=== PATIENT | female | born 1985 ===

== ENCOUNTER 2017-11-09 04:18 | Emergency (ER) | payer SELFPAY ==
--- NOTE | 2017-11-09 04:54 | C.PDOC ---
History Of Present Illness 32 year old female presents to the ED c/o intermittent left sided chest pressure for the past 3 weeks. Patient reports symptoms usually occur while sleeping at 03:00. Patient states chest discomfort associated with palpitations , lightheadedness, cramps in right hand and sweats to hands and feet. Patient denies fever, chills, visual changes, nausea, vomit, diarrhea, weakness, numbness. Time Seen by Provider: 11/09/17 04:44 Chief Complaint (Nursing): Chest Pain History Per: Patient History/Exam Limitations: no limitations Onset/Duration Of Symptoms: Intermittent Episodes (3 weeks) Current Symptoms Are (Timing): Still Present Quality: Pressure Recent travel outside of the [place]: No Additional History Per: Patient Past Medical History Reviewed: Historical Data, Nursing Documentation, Vital Signs Vital Signs: Last Vital Signs Temp 98.7 F 11/09/17 04:38 Pulse 71 11/09/17 04:40 Resp 20 11/09/17 04:38 BP 116/74 11/09/17 04:38 Pulse Ox 100 11/09/17 04:38 - Medical History PMH: No Chronic Diseases Surgical History: No Surg Hx Family History: States: Unknown Family Hx - Social History Hx Alcohol Use: Yes Hx Substance Use: No Review Of Systems Constitutional: Negative for: Fever, Chills Eyes: Negative for: Vision Change Cardiovascular: Positive for: Chest Pain, Palpitations Respiratory: Negative for: Cough, Shortness of Breath Gastrointestinal: Negative for: Nausea, Vomiting, Abdominal Pain Skin: Negative for: Rash Neurological: Negative for: Weakness, Numbness, Headache, Dizziness Physical Exam - Physical Exam Appears: Non-toxic, Other (anxious) Skin: Normal Color, Warm, Dry Head: Atraumatic, Normacephalic Eye(s): bilateral: Normal Inspection Oral Mucosa: Moist Neck: Normal ROM, Supple Chest: Symmetrical Cardiovascular: Rhythm Regular Respiratory: Normal Breath Sounds, No Rales, No Rhonchi, No Wheezing Gastrointestinal/Abdominal: Soft, No Tenderness, No Guarding, No Rebound Extremity: Normal ROM, No Tenderness, No Swelling Neurological/Psych: Oriented x3, Normal Speech Gait: Steady ED Course And Treatment - Laboratory Results Result Diagrams: 11/09/17 05:00 11/09/17 05:00 ECG: Interpreted By Me, Viewed By Me ECG Rhythm: Sinus Rhythm ECG Interpretation: No Acute Changes Rate From EC (BPM) Pulse Ox Interpretation: Normal - Radiology CXR: Interpreted by Me CXR Interpretation: Yes: No Acute Disease. No: Infiltrates, Cardiomegaly, Pnemothorax Progress Note: Plan: - EKG. - Labs. - CXR. - Aspirin 81 mg PO. - Atrax 25 mg PO. Pt remained stable in ED and in no distress. All labs and diagnostics reviewed and wnl, d/w pt and relative. Pt understands and agrees to plan. Reevaluation Time: 05:53 Reassessment Condition: Improved Disposition Counseled Patient/Family Regarding: Diagnosis, Need For Followup, Rx Given - Disposition Referrals: [facility] [Outside] Disposition: HOME/ ROUTINE Disposition Time: 06:01 Condition: STABLE Additional Instructions: Please follow up in clinic Take atarax at bedtime Return to ER if worse Prescriptions: hydrOXYzine HCl [Atarax] 25 mg PO HS #10 tab Forms: [employer] (Bahraini) Print Language: BURUNDIAN - Clinical Impression Clinical Impression: Anxiety - PA / GASKET WINDER / Resident Statement MD/DO has reviewed & agrees with the documentation as recorded. - Scribe Statement The provider has reviewed the documentation as recorded by the Scribe Santos Aleman All medical record entries made by the Endaibkenji were at my direction and personally dictated by me. I have reviewed the chart and agree that the record accurately reflects my personal performance of the history, physical exam, medical decision making, and the department course for this patient. I have also personally directed, reviewed, and agree with the discharge instructions and disposition.
[2017-11-09 05:00] VITALS: RESP 20
[2017-11-09 05:03] LABS: BASO % 0.5 % (0.0-2.0); EOS # 0.1 K/uL (0.0-0.7); EOS % 1.1 % (0.0-4.0); HEMOGLOBIN 12.3 g/dL (11.0-16.0); LYMPH # 3.3 K/uL (1.0-4.3); MEAN CELL VOLUME 88.6 fL (81.0-99.0); MEAN CORPUSCULAR HEMOGLOBIN 30.2 pg (27.0-31.0); MEAN CORPUSCULAR HGB CONC 34.1 g/dL (33.0-37.0); MEAN PLATELET VOLUME 9.2 fL (7.2-11.7); MONO # 0.7 K/uL (0.0-0.8); MONO % 6.8 % (0.0-10.0); NEUT # 6.7 K/uL (1.8-7.0); NEUT % 61.6 % (50.0-75.0); NRBC % 0.1 % (0.0-2.0); RBC 4.08 Mil/uL (3.80-5.20); RED CELL DISTRIBUTION WIDTH 13.2 % (11.5-14.5); WHITE BLOOD COUNT 10.8 K/uL (4.8-10.8)
[2017-11-09 05:17] LABS: ALB/GLOB RATIO 1.4 (1.0-2.1); ALBUMIN 4.5 g/dL (3.5-5.0); ALT/SGPT 26 U/L (9-52); AST/SGOT 16 U/L (14-36); BLOOD UREA NITROGEN 12 mg/dL (7-17); CALCIUM 9.8 mg/dl (8.6-10.4); GFR AFRICAN-AMERICAN > 60; GFR NON-AFRICAN AMERICAN > 60
[2017-11-09 05:55] VITALS: BP 109/73; PULSE 70; TEMP 98.4; O2SAT 99
--- NOTE | 2017-11-09 08:07 | RAD ---
Date of service: 11/09/2017 PROCEDURE: CHEST RADIOGRAPH, 1 VIEW HISTORY: chest pain COMPARISON: None available. FINDINGS: LUNGS: Clear. PLEURA: No pneumothorax or pleural fluid seen. CARDIOVASCULAR: Normal. OSSEOUS STRUCTURES: No significant abnormalities. VISUALIZED UPPER ABDOMEN: Normal. OTHER FINDINGS: None. IMPRESSION: No active disease.
== END 2017-11-09 06:07 | disposition home or self-care (01) ==
LOC: C.ER 04:18
DX: F41.9 Anxiety disorder, unspecified (principal)